=== PATIENT | female | born 1965 | race African-American/Black ===

== ENCOUNTER 2017-07-15 12:04 | Emergency (ER) | payer SELFPAY ==
[~2017-07-15] VITALS: Ht 172.7 cm; Wt 95.3 kg
[~2017-07-15 12:04] MED LIST: UNOBMED
[2017-07-15 12:20] VITALS: BP 147/93
[2017-07-15] MEDS ORDERED: LITHIUM CARBON300 MG ORAL (13:03)
[2017-07-15 13:14] VITALS: BP 124/78
--- NOTE | 2017-07-15 16:56 | Emergency Room Report ---
History of Present Illness General Chief Complaint: General Complaint Source: Patient, Family Member Present Illness HPI The patient is a 51-year-old female accompanied by father for medication refill. The patient states that she has bipolar disorder and has been unable to follow up with psychiatry. She states that she usually takes 300 mg of lithium twice a day but has been running out so she has only been taking one dose daily for the past week. The father states that the patient lives with him and she has been having "a bipolar episode". He states that the patient has not been sleeping as much and has been acting erratically. The patient denies any suicidal ideation or self harm ideation. The patient and father deny any other symptoms Allergies: Coded Allergies: NIETO (Verified Allergy, Unknown, 07/15/17) Uncoded Allergies: BEE (Allergy, Unknown, 07/15/17) POLLEN (Allergy, Unknown, 07/15/17) Patient History Past Medical History: psych hx Pertinent Family History: none Reviewed Nursing Documentation: PMH: Agreed, PSxH: Agreed Nursing Documentation-PMH Past Medical History: No History, Except For Hx Cardiac Problems: Yes - CARDIOMEGALLY Hx Hypertension: Yes Hx Asthma: No Hx COPD: No Hx Diabetes: No Hx Cancer: No Hx Gastrointestinal Problems: No Hx Dialysis: No History Of Psychiatric Problem: Yes - Anxiety, Depression, Bipolar Hx Neurological Problems: No Hx Cerebrovascular Accident: No Hx Seizures: No Review of Systems All Other Systems: negative except mentioned in HPI Physical Exam Vital Signs Date Time Temp Pulse Resp B/P (MAP) Pulse Ox O2 Delivery O2 Flow Rate FiO2 07/15/17 12:20 98.2 101 18 147/93 100 Room Air Sp02 EP Interpretation: reviewed, normal General Appearance: no apparent distress, alert, GCS 15, non-toxic Head: normocephalic, atraumatic Eyes: bilateral eye normal inspection, bilateral eye PERRL ENT: hearing grossly normal, normal pharynx, no angioedema, normal voice Neck: full range of motion, supple/symm/no masses Musculoskeletal: back normal, gait/station normal, normal range of motion, non- tender Neurologic: alert, oriented x3, responsive, motor strength/tone normal, sensory intact, speech normal Psychiatric: judgement/insight normal, memory normal, no suicidal/homicidal ideation Skin: normal color, no rash, warm/dry, well hydrated Medical Decision Making PA Attestation Dr. Macias is my supervising physician. Patient management was discussed with my supervising physician Diagnostic Impression: Primary Impression: Bipolar affective Qualified Codes: F31.9 - Bipolar disorder, unspecified ER Course The patient is a 51-year-old female accompanied by father for medication refill Differential diagnoses considered but not limited to: Bipolar disorder, lithium toxicity, drug use, suicidal ideation, among others PE: No apparent distress. A&Ox4 PERRL. EOMI. Normal mentation. RRR. No MRG Lungs CTA bilat Skin is warm and dry, no rashes. No tremor The patient is given refill of medication and needs to followup with psychiatry as soon as possible. The patient is accompanied by her father Last Vital Signs Date Time Temp Pulse Resp B/P (MAP) Pulse Ox O2 Delivery O2 Flow Rate FiO2 07/15/17 13:14 98.2 85 16 124/78 99 Room Air Status: improved Disposition: HOME, SELF-CARE Condition: Improved Scripts [place] Carbonate* (LITHIUM*) 300 Mg Capsule 300 MG ORAL BID, #60 CAP 0 Refills Prov: SAYDA FAUSTIN 07/15/17 Referrals: NOT CHOSEN IPA/MD,REFERRING (PCP) Patient Instructions: Bipolar Disorder Additional Instructions: I discussed my findings with the patient. All questions and concerns have been answered. Treatment and medication compliance have been addressed. Please follow up with psychiatry as soon as possible. Return to ED if symptoms worsen, new symptoms arise, or if needed for any reason. Patient verbalized understanding of discharge instructions. SAYDA FAUSTIN Jul 15, 2017 16:56
== END 2017-07-15 13:14 | disposition home or self-care (01) ==
LOC: EMR 13:10
DX: F31.9 Bipolar disorder, unspecified (principal); Z76.0 Encounter for issue of repeat prescription; I10 Essential (primary) hypertension
CPT/HCPCS: 99282